=== PATIENT | female | born 1995 | race African-American/Black ===

== ENCOUNTER 2019-12-14 10:22 | Emergency (ER) | payer SELFPAY ==
--- OUTSIDE RECORDS SUMMARY | 2019-12-14 10:25 | XMS REPORT | Continuity of Care Document ---
:1995 Author Organization [facility] t Address [address] [place] [address] Care Team Providers Name Role Phone Visit, Nurse Attending Clinician Unavailable Problems This patient has no known problems. Allergies, Adverse Reactions, Alerts This patient has no known allergies or adverse reactions. Medications This patient has no known medications. Procedures This patient has no known procedures. Encounters Start End Encounter Admission Attending Care Care Encounter Source Date/Time Date/Time Type Type Clinicians Facility Department ID 2019-11-05 2019-11-05 Nurse Visit, [facility] [id number] 15:28:40 15:46:48 Visit [facility] [employer] [id number] [facility] [id number] MATERNAL [id number] & CHILD 107 [facility] 2019-08-06 2019-08-06 Nurse Visit, [facility] [id number] 15:41:47 16:05:48 Visit [facility] [employer] [id number] [facility] [id number] MATERNAL [id number] & CHILD 107 [facility] 2019-02-20 2019-02-20 Nurse Visit, [facility] [id number] 13:24:29 13:48:57 Visit [facility] [employer] [id number] [facility] [id number] MATERNAL [id number] & CHILD 107 [facility] Results This patient has no known results.
--- OUTSIDE RECORDS SUMMARY | 2019-12-14 10:26 | XMS REPORT | Summary of Care ---
:1995 Author Organization [facility] Address [address] [place] [address] Care Team Providers Name Role Phone Tierra Burgos [facility] Primary Care Provider Reason for Visit Reason Comments NURSE VISIT Encounter Details Date Type Department Care Team Description 11/05/2019 Nurse Visit [facility] Otto Burgos, [facility] [address] [facility] [place], [place] [id number] Depo-Provera [place] Visit, [facility] Nurse contraceptive status [address] (Primary Dx) [place] [address] Allergies No Known Allergiesdocumented as of this encounter (statuses as of 11/05/2019) Medications Medication Sig Dispensed Refills Start Date End Date Status ferrous sulfate 325 mg Take 1 tablet by 60 tablet 2 04/21/2017 Active (65 mg iron) tablet mouth 2 (two) times daily. Hospital, Clinic, or Other Ordered Dose Route Frequency Start Date End Date Status Facility Administered Medication medroxyPROGESTERone 150 mg IM [id number] 05/22/2018 Active (DEPO-PROVERA) injection 150 mgIndications: Encounter for initial prescription of injectable contraceptive medroxyPROGESTERone 150 mg IM [id number] 06/22/2019 0 Active (DEPO-PROVERA) injection 150 mgIndications: Depot contraception documented as of this encounter (statuses as of 11/05/2019) Active Problems Patient Care Coordination Note IOL 04-19-17 @7pm Problem Noted Date Depot contraception 05/29/2019 Nexplanon removal 08/29/2017 Well woman exam 06/07/2017 Contraceptive management 06/07/2017 Laceration, obstetrical, second degree 04/22/2017 History of asthma 2015 documented as of this encounter (statuses as of 11/05/2019) Resolved Problems Problem Noted Date Resolved Date Routine follow-up 05/18/2017 06/07/2017 Vaginal bleeding 05/02/2017 05/18/2017 care and examination immediately after delivery 1 06/26/2016 05/18/2017 Thrombocytopenia 04/22/2017 05/18/2017 (spontaneous vaginal delivery) 04/21/201705/18 Single liveborn 04/21/2017 05/18/2017 39 weeks gestation of 04/19/2017 05/18/20 17 Positive GBS test 03/29/2017 05/18/2017 Contraceptive management 01/26/2017 05/18/2017 Overview: Declined tubal Anemia of mother in , antepartum 01/15/2017 05/18/2017 Supervision of high risk , antepartum 08/25/2016 05/18/2017 Flu vaccine need 08/25/2016 05/18/2017 Overview: Received today Well woman exam 2015 08/25/2016 Irregular menstrual cycle 2015 08/25/2016 BCP ( control pills) initiation 09/17/201503/2017 Dysmenorrhea 2015 08/25/2016 documented as of this encounter (statuses as of 11/05/2019) Immunizations Name Administration Dates Next Due HPV9 11/21/2017, 06/26/2017, 04/21/2017 Influenza Virus Vaccine Quad .5 mL IM 6+ 05/14/2019, 019 MO Influenza Virus Vaccine Quad IM 3+ YRS 04/22/2017, 7 Tdap 01/26/2017 documented as of this encounter Social History Tobacco Use Types Packs/Day Years Used Date Never Smoker Smokeless Tobacco: Never Used Alcohol Use Drinks/Week oz/Week Comments No 0 Standard drinks or equivalent 0.0 Sex Assigned at Date Recorded Not on file Job Start Date Occupation Industry Not on file Not on file Not on file Travel History Travel Start Travel End No recent travel history available. COVID-19 Exposure Response Date Recorded In the last month, have you been in contact with No / Unsure 11/05/2019 3:31 PM CDT someone who was confirmed or suspected to have Coronavirus / COVID-19? documented as of this encounter Last Filed Vital Signs Vital Sign Reading Time Taken Comments Blood Pressure 139/79 11/05/2019 3:32 PM CDT Pulse 87 11/05/2019 3:32 PM CDT Temperature 37 C (98.6 F) 11/05/2019 3:32 PM CDT Respiratory Rate 16 11/05/2019 3:32 PM CDT Oxygen Saturation - - Inhaled Oxygen Concentration - - Weight 79.5 kg (175 lb 3 oz) 11/05/2019 3:32 PM CDT Height 170.2 cm (5' 7") 11/05/2019 3:32 PM CDT Body Mass Index 27.44 11/05/2019 3:32 PM CDT documented in this encounter Patient Instructions Patient InstructionsJessica Magana RN - 11/05/2019 3:30 PM CDT Patient Education Medroxyprogesterone injection [Contraceptive] Brand Names: Depo-Provera, Depo-subQ Provera 104 What is this medicine? MEDROXYPROGESTERONE (me DROX ee proe MORENO te adalberto) contraceptive injections prevent . They provide effective control for 3 months. Depo-subQ Provera 104 is also used for treating pain related to endometriosis. How should I use this medicine? Depo-Provera Contraceptive injection is given into a muscle. Depo-subQ Provera 104 injection is given under the skin. These injections are given by a health career development consultant. You must not be before getting an injection. The injection is usually given during the first 5 days after the start of a menstrual period or 6 weeks after delivery of a baby. Talk to your germ drier regarding the use of this medicine in children. Special care may be needed. These injections have been used in female children who have started having menstrual periods. What side effects may I notice from receiving this medicine? Side effects that you should report to your doctor or health career development consultant as soon as possible: allergic reactions like skin rash, itching or hives, swelling of the face, lips, or tongue breast tenderness or discharge breathing problems changes in vision depression feeling faint or lightheaded, falls fever pain in the abdomen, chest, groin, or leg problems with balance, talking, walking unusually weak or tired yellowing of the eyes or skin Side effects that usually do not require medical attention (report to your doctor or health career development consultant if they continue or are bothersome): acne fluid retention and swelling headache irregular periods, spotting, or absent periods temporary pain, itching, or skin reaction at site where injected weight gain What may interact with this medicine? Do not take this medicine with any of the following medications: bosentan This medicine may also interact with the following medications: aminoglutethimide antibiotics or medicines for infections, especially rifampin, rifabutin, rifapentine, and griseofulvin aprepitant barbiturate medicines such as phenobarbital or primidone bexarotene carbamazepine medicines for seizures like ethotoin, felbamate, oxcarbazepine, phenytoin, topiramate modafinil Anshu's wort What if I miss a dose? Try not to miss a dose. You must get an injection once every 3 months to maintain control. If you cannot keep an appointment, call and reschedule it. If you wait longer than 13 weeks between Depo-Provera contraceptive injections or longer than 14 weeks between Depo-subQ Provera 104 injections, you could get . Use another method for control if you miss your appointment. You may also need a test before receiving another injection. Where should I keep my medicine? This does not apply. The injection will be given to you by a health career development consultant. What should I tell my health care provider before I take this medicine? They need to know if you have any of these conditions: frequently drink alcohol asthma blood vessel disease or a history of a blood clot in the lungs or legs bone disease such as osteoporosis breast cancer diabetes eating disorder (anorexia nervosa or bulimia) high blood pressure HIV infection or AIDS kidney disease liver disease mental depression migraine seizures (convulsions) stroke tobacco smoker vaginal bleeding an unusual or allergic reaction to medroxyprogesterone, other hormones, medicines, foods, dyes, or preservatives or trying to get breast-feeding What should I watch for while using this medicine? This drug does not protect you against HIV infection (AIDS) or other sexually transmitted diseases. Use of this product may cause you to lose calcium from your bones. Loss of calcium may cause weak bones (osteoporosis). Only use this product for more than 2 years if other forms of control are not right for you. The longer you use this product for control the more likely you will be at risk for weak bones. Ask your health career development consultant how you can keep strong bones. You may have a change in bleeding pattern or irregular periods. Many females stop having periods while taking this drug. If you have received your injections on time, your chance of being is very low. If you think you may be , see your health career development consultant as soon as possible. Tell your health career development consultant if you want to get within the next year. The effect of this medicine may last a long time after you get your last injection. NOTE:This sheet is a summary. It may not cover all possible information. If you have questions aboutthis medicine, talk to your doctor, pharmacist, or health care provider. Copyright 2018 [employer] documented in this encounter Progress Notes Jessica Magana RN - 11/05/2019 3:30 PM CDT24 year old female has been identified by and name. Verbal consent has been obtained by patientto have an injection of Depo Provera, as ordered by the provider. Date of last Depo Provera injection: 08/06/2019 Last WWE: 05/29/2019 Encounter Diagnosis: v25.49 The site was cleaned with an alcohol swab and given intramuscularly (IM) in the right gluteus. A band aid dressing was then applied to the injection site. The patient tolerated the procedure well , no rash, swelling or reaction noted. Advised patient on Calcium intake 500-1200 mg daily. ED warnings given. Patient to return to clinic in 12 weeks for next Depo. Patient verbalized understanding. JESSICA MAGANA RN 11/05/2019 3:49 PM documented in this encounter Plan of Treatment Date Type Specialty Care Team Description 01/28/2020 [facility] Maintenance Due Date Last Done Comments CHLAMYDIA SCREENING 05/29/2020 05/29/2019, 05/29/2019, 05/28/2018, Additional history exists MENINGOCOCCAL B VACCINES (1 05/29/2020 Post poned from of 2 - Risk Bexsero 2-dose 09/17 (Insurance / series) Financial) PAP SMEAR 05/28/2021 05/28/2018 DTaP,Tdap,and Td Vaccines 01/26/2027 01/26/2017 (2 - Td) HPV VACCINES Completed 11/21/2017, 06/26/2017, 04/21/2017 INFLUENZA VACCINE Completed 05/14/2019, 08/21/2018, 04/22/2017, Additional history exists PNEUMOCOCCAL 0-64 YEARS Aged Out No longe r eligible COMBINED SERIES based on patient 's age to complete this topic documented as of this encounter Results Not on filedocumented in this encounter Visit Diagnoses Diagnosis Depo-Provera contraceptive status - Prim franky Surveillance of other previously prescri bed contraceptive method documented in this encounter Administered Medications Medication Order MAR Action Action Date Dose Rate Site medroxyPROGESTERone Given 11/05/2019 3:51 150 mg Right Upper Quad. (DEPO-PROVERA) injection 150 PM CDT Gluteus mg 150 mg, Intramuscular, [id number], First dose on Sun05/22/18 at 1715, Until Discontinued, Routine Given 08/06/2019 4:17 PM REAL ESTATE ADMINISTRATOR 150 mg Left Upper Quad. Gluteus Given 05/14/2019 4:00 PM REAL ESTATE ADMINISTRATOR 150 mg Left Upper Quad. Gluteus documented in this encounter Insurance Payer Benefit Plan Subscriber ID Effective Phone Address Typ e / Group Dates [facility] xxxxxxxxx 2018-Prese [phone] Medicaid [place]OM[place] [id number] [place] [address] documented as of this encounter Advance Directives Name Relationship Healthcare Agent Relationship Co mmunication Meghan Wisdom Other Primary healthcare agent
[2019-12-14 11:39] LABS: Absolute Lymphocytes (CBC) 1.6 K/uL (0.7-4.9); Lymphocytes % 40.8 % (15.3-44.8); MPV 8.8 fL (7.6-11.3); Protime INR 1.13; RBC Red Blood Cell Count 5.02 M/uL (3.86-4.86)
--- NOTE | 2019-12-14 11:50 | RAD REPORT ---
EXAM DESCRIPTION: Vashti Single View12/14/2019 11:33 am CLINICAL HISTORY: Chest pain COMPARISON: none FINDINGS: The lungs appear clear of acute infiltrate. The heart is normal size IMPRESSION: No acute abnormalities displayed
[2019-12-14 11:54] LABS: ALT/SGPT 17 U/L (12-78); AST/SGOT 14 U/L (15-37); Albumin 4.1 g/dL (3.4-5.0); Alkaline Phosphatase 102 U/L (45-117); BUN Blood Urea Nitrogen 6 mg/dL (7-18); Bicarbonate 25 mmol/L (21-32); Bilirubin Direct 0.2 mg/dL (0-0.2); Bilirubin Total 0.7 mg/dL (0.2-1.0); Glucose Level 68 mg/dL (74-106); Magnesium 2.3 mg/dL (1.8-2.4); NT PRO-BNP 10 pg/mL (<125); Potassium 3.5 mmol/L (3.5-5.1); Protein, Total 8.6 g/dL (6.4-8.2); Sodium Level 140 mmol/L (136-145); Troponin (Emerg Dept Use Only) < 0.02 ng/mL (0.0-0.045)
--- NOTE | 2019-12-14 12:15 | EDPHYS ---
Physician Documentation [facility] Name: Tereza Kendrick Age: 24 yrs Sex: Female : 1995 Arrival Date: 12/14/2019 Time: 10:26 Bed 8 Private MD: ED Physician Alex Cedeño HPI: 12/13 11:15 This 24 yrs old Black Female presents to ER via Wheelchair with complaints of Chest pm1 Pain. 11:15 The patient or guardian reports chest pain that is located primarily in the mid-sternal pm1 area. The pain does not radiate. Associated signs and symptoms: The patient has no apparent associated signs or symptoms, Pertinent negatives: abdominal pain, cough, nausea, palpitations, shortness of breath, vomiting. The chest pain is described as sharp. Duration: The patient or guardian reports a single episode, that is still ongoing. Modifying factors: The symptoms are alleviated by nothing. the symptoms are aggravated by deep breath, palpation of area. Severity of pain: in the emergency department the pain is unchanged. [place] [facility] for the same complaint. Seen by Dr. Watt and discharged home with dx of chest wall pain. MDM DEVELOPER: 10:50 LMP 12/12/2019 rb1 Historical: - Allergies: 10:44 No Known Allergies; iw - Home Meds: 10:44 None [Active]; iw - PMHx: 10:44 Asthma; iw - PSHx: 10:44 None; iw - Immunization history:: Adult Immunizations. - Social history:: Smoking status: Patient/guardian denies using tobacco, the patient reports quitting approximately 2 years ago. ROS: 11:15 Constitutional: Negative for fever, chills, and weight loss, Eyes: Negative for injury, pm1 pain, redness, and discharge, ENT: Negative for injury, pain, and discharge, Neck: Negative for injury, pain, and swelling. 11:15 Respiratory: Negative for shortness of breath, cough, wheezing, and pleuritic chest pain, Abdomen/GI: Negative for abdominal pain, nausea, vomiting, diarrhea, and constipation, Back: Negative for injury and pain, : Negative for injury, bleeding, discharge, and swelling, MS/Extremity: Negative for injury and deformity, Skin: Negative for injury, rash, and discoloration, Neuro: Negative for headache, weakness, numbness, tingling, and seizure. 11:15 Cardiovascular: Positive for chest pain, Negative for edema, palpitations. Exam: 11:15 Constitutional: This is a well developed, well nourished patient who is awake, alert, pm1 and in no acute distress. Head/Face: Normocephalic, atraumatic. 11:15 Cardiovascular: Regular rate and rhythm with a normal S1 and S2. No gallops, murmurs, or rubs. Normal PMI, no JVD. No pulse deficits. Respiratory: Lungs have equal breath sounds bilaterally, clear to auscultation and percussion. No rales, rhonchi or wheezes noted. No increased work of breathing, no retractions or nasal flaring. Abdomen/GI: Soft, non-tender, with normal bowel sounds. No distension or tympany. No guarding or rebound. No evidence of tenderness throughout. Back: No spinal tenderness. No costovertebral tenderness. Full range of motion. Skin: Warm, dry with normal turgor. Normal color with no rashes, no lesions, and no evidence of cellulitis. MS/ Extremity: Pulses equal, no cyanosis. Neurovascular intact. Full, normal range of motion. 11:15 Chest/axilla: Inspection: normal, Palpation: tenderness, of the mid-sternal area, that totally reproduces the patient's complaints. 11:15 Neuro: Exam negative for acute changes, Orientation: is normal, Motor: is normal, moves all fours. Vital Signs: 10:40 BP 140 / 89; Pulse 96; Resp 18 S; Temp 98.7; Pulse Ox 100% on R/A; Weight 81.65 kg; iw Height 5 ft. 10 in. (177.80 cm); Pain 10/10; 11:45 BP 125 / 81; Pulse 86; Resp 19; Pulse Ox 100% on R/A; rb1 12:42 BP 102 / 91; Pulse 82; Resp 21; Pulse Ox 100% ; rb1 10:40 Body Mass Index 25.83 (81.65 kg, 177.80 cm) iw MDM: 11:04 Patient medically screened. pm1 12:10 Data reviewed: vital signs. Data interpreted: Pulse oximetry: on room air is 100 %. pm1 Interpretation: normal. Counseling: I had a detailed discussion with the patient and/or guardian regarding: the historical points, exam findings, and any diagnostic results supporting the discharge/admit diagnosis, lab results, radiology results, the need for outpatient follow up, to return to the emergency department if symptoms worsen or persist or if there are any questions or concerns that arise at home. 12:10 Data reviewed: old medical records, Work up from [facility] reviewed, which included pm1 labs and CT chest. Patient's chest pain work up today is WNLs and patient instructed to follow up with PCP. 12/13 11:06 Order name: Basic Metabolic Panel; Complete Time: 12:09 pm12/13 11:06 Order name: CBC with Diff; Complete Time: 11:40 pm12/13 11:06 Order name: LFT's; Complete Time: 12: pm12/13 11:06 Order name: Magnesium; Complete Time: 12: pm12/13 11:06 Order name: NT PRO-BNP; Complete Time: 12:09 pm12/13 11:06 Order name: PT-INR; Complete Time: 11:40 pm12/13 11:06 Order name: Troponin (emerg Dept Use Only); Complete Time: 12: pm12/13 11:06 Order name: XRAY Chest (1 view); Complete Time: 12: pm12/13 11:06 Order name: EKG; Complete Time: 11:07 pm12/13 11:06 Order name: Cardiac monitoring; Complete Time: 11:25 pm12/13 11:06 Order name: EKG - Nurse/Tech; Complete Time: 11:25 pm12/13 11:06 Order name: IV Saline Lock; Complete Time: 11: pm12/13 11:06 Order name: Labs collected and sent; Complete Time: 11: pm12/13 11:06 Order name: O2 Per Protocol; Complete Time: 11: pm12/13 11:06 Order name: O2 Sat Monitoring; Complete Time: 11: pm Administered Medications: 12:40 Drug: TORadol - Ketorolac 15 mg Route: IVP; Site: right antecubital; rb1 12:54 Follow up: Response: No adverse reaction rb1 12:40 Drug: Flexeril 10 mg Route: PO; rb1 12:53 Follow up: Response: No adverse reaction rb1 Disposition: 15:24 Co-signature as Attending Physician, Alex Cedeño MD. rn Disposition: 12/14/19 12:15 Discharged to Home. Impression: Chest pain, unspecified. - Condition is Stable. - Discharge Instructions: Nonspecific Chest Pain. - Prescriptions for Cyclobenzaprine 10 mg Oral Tablet - take 1 tablet by ORAL route every 8 hours As needed; 30 tablet. Diclofenac Sodium 75 mg Oral Tablet Sustained Release - take 1 tablet by ORAL route 2 times per day; 30 tablet. - Medication Reconciliation Form, Thank You Letter, Antibiotic Education, Prescription Opioid Use form. - Follow up: Emergency Department; When: As needed; Reason: Worsening of condition. Follow up: Private Physician; When: 2 - 3 days; Reason: Recheck today's complaints, Continuance of care, Re-evaluation by your physician. - Problem is new. - Symptoms have improved. Signatures: Dispatcher [employer] EDMS Mary Jo Acosta RN RN iw Nieto, Roman, MD MD rn Barber, Rebecca, RN RN rb1 Dominik Pollock, ASSOCIATE PROGRAMMER ANALYST ASSOCIATE PROGRAMMER ANALYST pm1 Corrections: (The following items were deleted from the chart) 12:57 12:15 12/14/2019 12:15 Discharged to Home. Impression: Chest pain, unspecified. rb1 Condition is Stable. Forms are Medication Reconciliation Form, Thank You Letter, Antibiotic Education, Prescription Opioid Use. Follow up: Emergency Department; When: As needed; Reason: Worsening of condition. Follow up: Private Physician; When: 2 - 3 days; Reason: Recheck today's complaints, Continuance of care, Re-evaluation by your physician. Problem is new. Symptoms have improved. pm1
--- NOTE | 2019-12-14 12:15 | ER ---
Nurse's Notes [facility] Name: Tereza Kendrick Age: 24 yrs Sex: Female : 1995 Arrival Date: 12/14/2019 Time: : Bed 8 Private MD: Diagnosis: Chest pain, unspecified Presentation: 12/13 10:40 Chief complaint: Patient states: chest pains sinc the , was seen at [place] [facility], had iw CT and was fine, went back yesterday and was told she had an infection in her sternum but the pain medicine isn't helping, was diagnosed with costochondritis, has previous hx of two minor heart attacks, pain has been constant 03/27 , and is also SOB, can't sleep on back or stomach bc of pain, pain described as burning pain. Coronavirus screen: Proceed with normal triage. Patient denies a cough. Patient reports shortness of breath or difficulty breathing. Patient denies measured and/or subjective temperature greater than 100.4F prior to today's visit. Patient denies travel on a cruise ship or to a country the [facility] currently lists as an affected area. Patient denies contact with known and/or suspected case of COVID-19. Ebola Screen: Patient negative for fever greater than or equal to 101.5 degrees Fahrenheit, and additional compatible Ebola Virus Disease symptoms Patient denies exposure to infectious person. Patient denies travel to an Ebola-affected area in the 21 days before illness onset. No symptoms or risks identified at this time. Initial Sepsis Screen: Does the patient meet any 2 criteria? No. Patient's initial sepsis screen is negative. Does the patient have a suspected source of infection? No. Patient's initial sepsis screen is negative. Risk Assessment: Do you want to hurt yourself or someone else? Patient reports no desire to harm self or others. Onset of symptoms was December 04, 2019. 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 - Social history:: Smoking status: Patient/guardian denies using tobacco, the patient reports quitting approximately 2 years ago. Screenin:50 Abuse screen: Denies threats or abuse. Nutritional screening: No deficits noted. rb1 Tuberculosis screening: No symptoms or risk factors identified. Fall Risk None identified. Assessment: 10:50 General: Appears in no apparent distress. comfortable, Behavior is calm, cooperative. rb1 Pain: Complains of pain in chest Pain currently is 10 out of 10 on a pain scale. Pain began Since December 03 per pt report. Neuro: Level of Consciousness is awake, alert, obeys commands, Oriented to person, place, time, situation. Cardiovascular: Capillary refill < 3 seconds. Respiratory: Reports shortness of breath at rest Airway is patent Respiratory effort is even, unlabored, Respiratory pattern is regular, symmetrical. GI: No signs and/or symptoms were reported involving the gastrointestinal system. : No signs and/or symptoms were reported regarding the genitourinary system. Derm: Skin is dry, Skin is normal, Skin temperature is warm. 10:50 Pain: Pain radiates to back Pt. reports that she cannot lay on her back because the rb1 pain travels to her back when she does. 11:45 Reassessment: Patient appears in no apparent distress at this time. Patient and/or rb1 family updated on plan of care and expected duration. Pain level reassessed. Patient is alert, oriented x 3, equal unlabored respirations, skin warm/dry/pink. 12:41 Reassessment: Discharge pending due medication administration. rb1 Vital Signs: 10:40 BP 140 / 89; Pulse 96; Resp 18 S; Temp 98.7; Pulse Ox 100% on R/A; Weight 81.65 kg; iw Height 5 ft. 10 in. (177.80 cm); Pain 10/10; 11:45 BP 125 / 81; Pulse 86; Resp 19; Pulse Ox 100% on R/A; rb1 12:42 BP 102 / 91; Pulse 82; Resp 21; Pulse Ox 100% ; rb1 10:40 Body Mass Index 25.83 (81.65 kg, 177.80 cm) iw ED Course: 10:26 Patient arrived in ED. ag5 10:44 Triage completed. iw 10:46 Adela Decker, RN is Primary Nurse. rb1 10:46 Dominik Pollock NP is PHCP. pm1 10:46 Alex Cedeño MD is Attending Physician. pm1 10:50 Patient has correct armband on for positive identification. Placed in gown. Bed in low rb1 position. Call light in reach. Side rails up X 1. senior laboratory technician on. Pulse ox on. NIBP on. Warm blanket given. 10:50 Arm band placed on right wrist. rb1 10:50 Patient maintains SpO2 saturation greater than 95% on room air. rb1 11:10 Inserted saline lock: 22 gauge in right antecubital area, using aseptic technique. rb1 Blood collected. 11:25 EKG done, by ED staff, reviewed by Alex Cedeño MD. 5 11:33 XRAY Chest (1 view) In Process Unspecified. EDMS 12:54 No provider procedures requiring assistance completed. IV discontinued, intact, rb1 bleeding controlled, No redness/swelling at site. Pressure dressing applied. Administered Medications: 12:40 Drug: TORadol - Ketorolac 15 mg Route: IVP; Site: right antecubital; rb1 12:54 Follow up: Response: No adverse reaction rb1 12:40 Drug: Flexeril 10 mg Route: PO; rb1 12:53 Follow up: Response: No adverse reaction rb1 Outcome: 12:15 Discharge ordered by MD. pm1 12:54 Discharged to home ambulatory. rb1 12:54 Condition: stable 12:54 Discharge instructions given to patient, Instructed on discharge instructions, follow up and referral plans. medication usage, Demonstrated understanding of instructions, follow-up care, medications, Prescriptions given X 1. 12:57 Patient left the ED. rb1 Signatures: Dispatcher [employer] EDMS Mary Jo cAosta RN RN iw Barber, Rebecca, RN RN rb1 Dominik Pollock NP PERPETUAL INVENTORY CLERK pm1 Yari Patel 5 Franci Upton 5
[2019-12-14] MEDS ORDERED: KETOROLAC 30 MG/ML INJ ONE (12:44)
[2019-12-14] MEDS ORDERED: CYCLOBENZAPRINE 10 MG TAB ONE (12:44)
[2019-12-14 13:04] VITALS: TEMP 98.7; O2SAT 100
[2019-12-14 13:07] VITALS: BP 102/91
== END 2019-12-14 12:57 | disposition home or self-care (01) ==
LOC: ER 10:22
DX: R07.9 Chest pain, unspecified (principal)
CPT/HCPCS: 36415; 71045; 80048; 80076; 83735; 83880; 84484; 85025; 85610; 93005; 96374; 99285

== ENCOUNTER 2020-03-14 20:29 | Emergency (ER) | payer SELFPAY ==
--- OUTSIDE RECORDS SUMMARY | 2020-03-14 20:32 | XMS REPORT | Continuity of Care Document ---
:1995 Author Organization [facility] t Address [address] [place] [address] Care Team Providers Name Role Phone Lab, Fam Pob I Attending Clinician Unavailable Visit, Nurse Attending Clinician Unavailable Problems This patient has no known problems. Allergies, Adverse Reactions, Alerts This patient has no known allergies or adverse reactions. Medications This patient has no known medications. Procedures This patient has no known procedures. Encounters Start End Encounter Admission Attending Care Care Encounter Source Date/Time Date/Time Type Type Clinicians Facility Department ID 2020-01-09 2020-01-09 Laboratory Lab, [facility] [id number] 17:00:00 17:20:00 Only Fam Pob I Health [id number] [place] [id number] Professio [id number] nal [address] 2019-11-05 2019-11-05 Nurse Visit, [facility] [id number] 15:28:40 15:46:48 Visit [facility] PERIODONTAL ASSISTANT [id number] [facility] [id number] MATERNAL [id number] & CHILD 107 [facility] 2019-08-06 2019-08-06 Nurse Visit, [facility] [id number] 15:41:47 16:05:48 Visit [facility] PERIODONTAL ASSISTANT [id number] [facility] [id number] MATERNAL [phone] & CHILD 107 [facility] 2019-02-20 2019-02-20 Nurse Visit, [facility] [id number] 13:24:29 13:48:57 Visit [facility]era PERIODONTAL ASSISTANT [id number] [facility] [id number] MATERNAL [phone] & CHILD [address] [place] [address] Results This patient has no known results.
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
[2020-03-14] MEDS ORDERED: DIAZEPAM 5 MG TABLET ONE (22:39)
[2020-03-14 23:19] LABS: Urine Culture Reflex Order NOT NEEDED; Urine Mucus 1+ /HPF (NONE SEEN)
[2020-03-14 23:20] LABS: Urine Bacteria <20 /HPF (<20); Urine RBC <5 /HPF (NONE SEEN)
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
[2020-03-14 23:44] VITALS: TEMP 99.2
[2020-03-14 23:46] VITALS: BP 117/79; O2SAT 97
[2020-03-15 00:08] LABS: Urine Blood NEGATIVE (NEG); Urine Glucose NEGATIVE (NEG); Urine Protein TRACE (NEG); Urine Specific Gravity 1.025 (1.005-1.030)
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
== END 2020-03-14 23:38 | disposition home or self-care (01) ==
LOC: ER 20:29
DX: M54.9 Dorsalgia, unspecified (principal); V59.49XA Driver of pick-up truck or van injured in collision with other motor vehicles in traffic accident, initial encounter
CPT/HCPCS: 71046; 81003; 81015; 81025; 87086; 87088; 99283

== ENCOUNTER 2020-07-27 16:12 | Emergency (ER) | payer SELFPAY ==
[2020-07-27 18:55] LABS: Urine Blood TRACE (NEG); Urine Glucose 1+ (NEG); Urine Protein NEGATIVE (NEG); Urine Specific Gravity >1.030 (1.005-1.030); Urine pH 5.5 (5.0-7.0)
--- NOTE | 2020-07-27 21:12 | EDPHYS ---
Physician Documentation [facility] Name: Tereza Kendrick Age: 24 yrs Sex: Female : 1995 Arrival Date: 07/27/2020 Time: 16:12 Bed 2 Private MD: ED Physician Darin Pearl HPI: 07/27 21:09 This 24 yrs old Black Female presents to ER via Ambulatory with complaints of STD ma2 Exposure - recheck symptoms. 21:09 Severity of symptoms: At their worst the symptoms were very mild in the emergency ma2 department the symptoms have resolved. The patient has not experienced similar symptoms in the past. she has no symptoms, or exposure to stds.. she had positive routine test in the past and now want to be retested.. . Historical: - Allergies: 16:57 No Known Allergies; ll1 - PMHx: 16:57 "heart attacks"; "Infection in my sternum"; Asthma; ll1 - PSHx: 16:57 None; ll1 - Immunization history:: Flu vaccine is not up to date. - Social history:: Smoking status: Patient denies any tobacco usage or history of. Patient/guardian denies using alcohol, street drugs, The patient lives with family. - Family history:: not pertinent. ROS: 21:09 Constitutional: Negative for fever, chills, and weight loss. ma2 21:09 All other systems are negative. Exam: 21:09 Constitutional: This is a well developed, well nourished patient who is awake, alert, ma2 and in no acute distress. Chest/axilla: Normal chest wall appearance and motion. Nontender with no deformity. No lesions are appreciated. Cardiovascular: Regular rate and rhythm with a normal S1 and S2. No gallops, murmurs, or rubs. Normal PMI, no JVD. No pulse deficits. Respiratory: Lungs have equal breath sounds bilaterally, clear to auscultation and percussion. No rales, rhonchi or wheezes noted. No increased work of breathing, no retractions or nasal flaring. Abdomen/GI: Soft, non-tender, with normal bowel sounds. No distension or tympany. No guarding or rebound. No evidence of tenderness throughout. Vital Signs: 16:54 BP 142 / 69; Pulse 93; Resp 17; Temp 98.1; Pulse Ox 100% ; Weight 83.01 kg; Height 5 ll1 ft. 9 in. (175.26 cm); Pain 0/10; 21:02 BP 130 / 60; Pulse 90; Resp 18; Pulse Ox 99% ; ea 16:54 Body Mass Index 27.02 (83.01 kg, 175.26 cm) ll1 MDM: 20:43 Patient medically screened. ma2 21:09 Differential Diagnosis std, uti uritcaria, . Data reviewed: vital signs, nurses notes. ma2 Counseling: I had a detailed discussion with the patient and/or guardian regarding: the historical points, exam findings, and any diagnostic results supporting the discharge/admit diagnosis, the presence of at least one elevated blood pressure reading (>120/80) during this emergency department visit, the need for outpatient follow up. Response to treatment: the patient's symptoms have markedly improved after treatment. ED course: has leuko estrase + on ua,, but no symptoms of uti, so will not treat with antibiotics, . 07/27 18:36 Order name: Urine Dipstick--Ancillary (enter results) 07/27 18:36 Order name: Urine --Ancillary (enter results) 07/27 18:37 Order name: Urine Dipstick-Ancillary EDMS Administered Medications: No medications were administered Disposition: 07/27/20 21:12 Discharged to Home. Impression: Encounter for screening for infections with a predominantly sexual mode of transmission. - Condition is Stable. - Discharge Instructions: Health Maintenance, Female. - Medication Reconciliation Form, Thank You Letter, Antibiotic Education, Prescription Opioid Use form. - Follow up: Private Physician; When: Tomorrow; Reason: Continuance of care. Signatures: Dispatcher [employer] EDMS Brittney Addison RN RN ea Alzahri, Mohammad, MD MD ma2 Brianne Lopez RN RN ll1 Corrections: (The following items were deleted from the chart) 21:17 21:12 07/27/2020 21:12 Discharged to Home. Impression: Encounter for screening for ea infections with a predominantly sexual mode of transmission. Condition is Stable. Forms are Medication Reconciliation Form, Thank You Letter, Antibiotic Education, Prescription Opioid Use. Follow up: Private Physician; When: Tomorrow; Reason: Continuance of care. ma2
--- NOTE | 2020-07-27 21:12 | ER ---
Nurse's Notes [facility] Name: Tereza Kendrick Age: 24 yrs Sex: Female : 1995 Arrival Date: 07/27/2020 Time: 16:12 Bed 2 Private MD: Diagnosis: Encounter for screening for infections with a predominantly sexual mode of transmission Presentation: 07/27 16:54 Chief complaint: Patient states: Went to doctor last week. Was called yesterday and ll1 told she has chlamydia. Finished antibiotic, just came to get rechecked. Coronavirus screen: Client denies travel out of the [place] in the last 14 days. At this time, the client does not indicate any symptoms associated with coronavirus-19. Ebola Screen: Patient denies travel to an Ebola-affected area in the 21 days before illness onset. Initial Sepsis Screen: Does the patient meet any 2 criteria? HR > 90 bpm. No. Patient's initial sepsis screen is negative. Does the patient have a suspected source of infection? Yes: Other: r/o chlamydia. Risk Assessment: Do you want to hurt yourself or someone else? Patient reports no desire to harm self or others. Onset of symptoms was July 23, 2020. 16:54 Method Of Arrival: Ambulatory ll1 16:54 Acuity: SOURAV 4 ll1 Historical: - Allergies: 16:57 No Known Allergies; ll1 - PMHx: 16:57 "heart attacks"; "Infection in my sternum"; Asthma; ll1 - PSHx: 16:57 None; ll1 - Immunization history:: Flu vaccine is not up to date. - Social history:: Smoking status: Patient denies any tobacco usage or history of. Patient/guardian denies using alcohol, street drugs, The patient lives with family. - Family history:: not pertinent. Screenin:01 Abuse screen: Denies threats or abuse. Nutritional screening: No deficits noted. ea Tuberculosis screening: No symptoms or risk factors identified. Fall Risk None identified. Assessment: 21:01 General: Appears in no apparent distress. Behavior is calm, cooperative, appropriate ea for age. Pain: Denies pain. Neuro: Level of Consciousness is awake, alert, obeys commands. Cardiovascular: Patient's skin is warm and dry. Respiratory: Airway is patent Respiratory effort is even, unlabored, Respiratory pattern is regular, symmetrical. Derm: Skin is pink, warm \\T\\ dry. 21:16 Reassessment: Patient and/or family updated on plan of care and expected duration. Pain ea level reassessed. Patient is alert, oriented x 3, equal unlabored respirations, skin warm/dry/pink. Discharge instruction given to patient verbalized the understanding of instruction. Pt left ED ambulatory tolerating well. Vital Signs: 16:54 BP 142 / 69; Pulse 93; Resp 17; Temp 98.1; Pulse Ox 100% ; Weight 83.01 kg; Height 5 ll1 ft. 9 in. (175.26 cm); Pain 0/10; 21:02 BP 130 / 60; Pulse 90; Resp 18; Pulse Ox 99% ; ea 16:54 Body Mass Index 27.02 (83.01 kg, 175.26 cm) ll1 ED Course: 16:12 Patient arrived in ED. as 16:57 Triage completed. ll1 16:57 Arm band placed on. 1 20:43 Darin Pearl MD is Attending Physician. [email or web address] 20:53 Brittney Addison, RN is Primary Nurse. ea 21:01 Patient has correct armband on for positive identification. Bed in low position. Call ea light in reach. Side rails up X 1. 21:17 No provider procedures requiring assistance completed. Patient did not have IV access ea during this emergency room visit. Administered Medications: No medications were administered Outcome: 21:12 Discharge ordered by . ma2 21:16 Discharged to home ambulatory, with friend. ea 21:16 Condition: stable 21:16 Discharge instructions given to patient, Instructed on discharge instructions, follow up and referral plans. medication usage, Demonstrated understanding of instructions, follow-up care, medications. 21:17 Patient left the ED. ea Signatures: Kayla Patel Elena, RN RN Darin Shepherd MD MD de2 Brianne Lopez RN RN [facility]
[2020-07-27 21:22] VITALS: TEMP 98.1
[2020-07-27 21:24] VITALS: BP 130/60; O2SAT 99
--- OUTSIDE RECORDS SUMMARY | 2020-07-28 12:12 | XMS REPORT | Summary of Care ---
:1995 Author Organization [facility] - Health Address [address] [place] [address] Care Team Providers Name Role Phone Tierra Burgos Primary Care Provider Encounter Details Date Type Department Care Team Description 07/22/2020 Orders Only [facility] Doctor Unassigned, No [address] [facility] [place] [address] [address] [place] [address] Allergies No Known Allergiesdocumented as of this encounter (statuses as of 07/22/2020) Medications Medication Sig Dispensed Refills Start Date End Date Status ferrous sulfate 325 mg Take 1 tablet by 60 tablet 2 04/21/2017 Active (65 mg iron) tablet mouth 2 (two) times daily. Hospital, Clinic, or Other Ordered Dose Route Frequency Start Date End Date Status Facility Administered Medication medroxyPROGESTERone 150 mg IM [id number] 05/22/2018 Active (DEPO-PROVERA) injection 150 mgIndications: Encounter for initial prescription of injectable contraceptive documented as of this encounter (statuses as of 07/22/2020) Active Problems Patient Care Coordination Note IOL 17 @7pm Problem Noted Date Depot contraception 05/29/2019 Nexplanon removal 08/29/2017 Well woman exam 06/07/2017 Contraceptive management 06/07/2017 Laceration, obstetrical, second degree 04/22/2017 History of asthma 2015 documented as of this encounter (statuses as of 07/22/2020) Resolved Problems Problem Noted Date Resolved Date Routine follow-up 05/18/2017 06/07/2017 Vaginal bleeding 05/02/2017 05/18/2017 care and examination immediately after delivery 1 06/26/2016 05/18/2017 Thrombocytopenia 04/22/2017 05/18/2017 (spontaneous vaginal delivery) 04/21/201705/18 Single liveborn infant 04/21/2017 05/18/2017 39 weeks gestation of 04/19/2017 [...] as of this encounter (statuses as of 07/22/2020) Immunizations Name Administration Dates Next Due HPV9 [...] Assigned at Date Recorded Not on file documented as of this encounter Last Filed Vital Signs Not on filedocumented in this encounter Plan of Treatment Date Type Specialty Care Team Description 07/22/2020 [facility] Visit [facility] [address] [id number] 15 [phone] Health Maintenance Due Date Last Done Comments MENINGOCOCCAL B VACCINES (1 2006 of 2 - Risk Bexsero 2-dose series) INFLUENZA VACCINE (#1) 2020 05/14/2019, 08/21/2018, 04/22/2017, Additional history exists CHLAMYDIA SCREENING 05/29/2020 05/29/2019, 05/29/2019, 05/28/2018, Additional history exists Depression Screening 11/04/2020 11/05/2019 PAP SMEAR 05/28/2021 05/28/2018 DTaP,Tdap,and Td Vaccines (2 01/26/2027 01/26/2017 - Td) HPV VACCINES Completed 11/21/2017, 06/26/2017, 04/21/2017 PNEUMOCOCCAL 0-64 YEARS Aged Out No longe r eligible COMBINED SERIES based on patient 's age to complete this topic documented as of this encounter Procedures Procedure Name Priority Date/Time Associated Diagnosis Comme nts ASSIGNMENT OF BENEFITS Routine 07/22/2020 9:12 AM 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
--- OUTSIDE RECORDS SUMMARY | 2020-07-28 12:12 | XMS REPORT | Continuity of Care Document ---
:1995 Author Organization [facility] t Address [address] [place] [address] Care Team Providers Name Role Phone Tierra Lamb Attending Clinician Problems This patient has no known problems. Allergies, Adverse Reactions, Alerts This patient has no known allergies or adverse reactions. Medications This patient has no known medications. Procedures This patient has no known procedures. Encounters Start End Encounter Admission Attending Care Care Encounter Source Date/Time Date/Time Type Type Clinicians Facility Department ID 2020-07-22 2020-07-22 Office YOLIE Burgos [id number] 09:24:39 10:35:36 Visit Emma Mayorga [facility] [id number] [facility] [id number] MATERNAL [id number] & CHILD [address] [place] [address] Results This patient has no known results.
--- OUTSIDE RECORDS SUMMARY | 2020-07-28 12:13 | XMS REPORT | Summary of Care ---
:1995 Author Organization [facility] Address [address] [place] [address] Care Team Providers Name Role Phone Tierra Burgos [facility] Primary Care Provider Reason for Visit Reason Comments Well Woman Exam CONTROL Encounter Details Date Type Department Care Team Description 07/22/2020 Office Visit [facility]- Emma Burgos for other contraceptive management (Primary Dx); Timmy Mayorga KATARINA Encounter for Depo-Provera contraception ; [address] Depot contraception; [address] Well woman exam; [place], [place] [address] Over weight [id number] Allergies Active Allergy Reactions Severity Noted Date Comments Grass Pollen Cough 07/22/2020 [place] Cough 07/22/2020 documented as of this encounter (statuses as of 07/22/2020) Medications Medication Sig Dispensed Refills Start Date End Date Status ferrous sulfate 325 mg Take 1 tablet by 60 tablet 2 04/21/2017 Active (65 mg iron) tablet mouth 2 (two) times daily. Hospital, Clinic, or Other Ordered Dose Route Frequency Start Date End Date Status Facility Administered Medication medroxyPROGESTERone 150 mg IM [id number] 05/22/2018 Active (DEPO-PROVERA) injection 150 mgIndications: Encounter for initial prescription of injectable contraceptive medroxyPROGESTERone 150 mg IM [id number] 07/22/2020 2 Active (DEPO-PROVERA) injection 150 mgIndications: Depot contraception documented as of this encounter (statuses as of 07/22/2020) Active Problems Patient Care Coordination Note IOL 11-2-17 @7pm Problem Noted Date Over weight 07/22/2020 Depot contraception 05/29/2019 Nexplanon removal 08/29/2017 Well [...] Assigned at Date Recorded Not on file COVID-19 Exposure Response Date Recorded In the last month, have you been in contact with No / Unsure 07/22/2020 9:38 AM AUTOMATIC PATTERN EDGER someone who was confirmed or suspected to have Coronavirus / COVID-19? documented as of this encounter Last Filed Vital Signs Vital Sign Reading Time Taken Comments Blood Pressure 121/72 07/22/2020 9:38 AM AUTOMATIC PATTERN EDGER Pulse 93 07/22/2020 9:38 AM AUTOMATIC PATTERN EDGER Temperature 37.2 C (98.9 F) 07/22/2020 9:38 AM AUTOMATIC PATTERN EDGER Respiratory Rate 16 07/22/2020 9:38 AM AUTOMATIC PATTERN EDGER Oxygen Saturation - - Inhaled Oxygen Concentration - - Weight 83.2 kg (183 lb 8 oz) 07/22/2020 9:38 AM AUTOMATIC PATTERN EDGER Height 170.2 cm (5' 7") 07/22/2020 9:38 AM AUTOMATIC PATTERN EDGER Body Mass Index 28.74 07/22/2020 9:38 AM AUTOMATIC PATTERN EDGER documented in this encounter Progress Notes Emma Burgos, ANNA MARIEP - 07/22/2020 10:30 AM CST Chief complaint: Chief Complaint Patient presents with Well Woman Exam CONTROL COUNTER SERVER Exam Patient is here for contraceptive management and well woman visit. She is not . She wears cotton underwear. It is unknown whether or not her partner has an STD. She uses progestin injections for contraception. Patient reports that prior to today's visit, her form of control was 3 month hormonal injection. After this visit, patient's form of control will be 3 month hormonal injection. Her menstrual history has been regular. Patient reports sexually active. HPI: ; the patient is here today for WWE and contraceptive management. She reports she is doing welltoday with no issues or concerns. She agrees to STi testing but declines the need for HIV testing today.she reports she was on depo for control and desires to re-start depo today. She reports herlast intercourse was 07/02/20 Histories OB History Para Term AB Living 1 1 1 0 0 1 SAB TAB Ectopic Multiple Live Births 0 0 0 0 1 # Outcome Date GA Lbr Clifford/2nd Weight Sex Delivery Anes PTL Lv 1 Term 04/20/17 [id number] 7 lb 0.2 oz (3.18 kg) F VAGINAL EPI SO Past Medical History: Diagnosis Date Abnormal uterine bleeding Anemia of mother in , antepartum 01/15/2017 Asthma dx in 5th grade, resolved Menstrual disorder Thrombocytopenia 04/22/2017 Family History Problem Relation Age of Onset Arthritis Maternal Grandmother Diabetes Maternal Grandmother Hypertension Maternal Grandmother Asthma NoFHx defects NoFHx Breast Cancer NoFHx Colon Cancer NoFHx Ovarian Cancer NoFHx Uterine Cancer NoFHx Cancer NoFHx Depression NoFHx Genetic NoFHx Heart NoFHx High cholesterol NoFHx Mental retardation NoFHx Neurological NoFHx Osteoporosis NoFHx Psychiatry NoFHx Family Status Relation Name Status MGMo (Not Specified) NoFHx (Not Specified) History reviewed. No pertinent surgical history. Social History Socioeconomic History Marital status: Single Spouse name: Not on file Number of children: 1 Years of education: Not on file Highest education level: Not on file Occupational History Not on file Social Needs Financial resource strain: Not on file Food insecurity Worry: Not on file Inability: Not on file Transportation needs Medical: Not on file Non-medical: Not on file Tobacco Use Smoking status: Never Smoker Smokeless tobacco: Never Used Substance and Sexual Activity Alcohol use: No Alcohol/week: 0.0 standard drinks Drug use: No Sexual activity: Yes Partners: Male control/protection: None Comment: last intercourse: 07/02/2020 Lifestyle Physical activity Days per week: Not on file Minutes per session: Not on file Stress: Not on file Relationships Social connections Talks on phone: Not on file Gets together: Not on file Attends anabaptism service: Not on file Active member of club or organization: Not on file Attends meetings of clubs or organizations: Not on file Relationship status: Not on file Intimate partner violence Fear of current or ex partner: Not on file Emotionally abused: Not on file Physically abused: Not on file Forced sexual activity: Not on file Other Topics Concern Not on file Social History Narrative Pt denies current or past physical, sexual or emotional abuse. Social History Substance and Sexual Activity Sexual Activity Yes Partners: Male control/protection: None Comment: last intercourse: 07/02/2020 Labs Labs are pending. and No visits with results within 1 Month(s) from this visit. Latest known visit with results is: Office Visit on 05/29/2019 Component Date Value C. trachomatis Nucleic A* 05/29/2019 Negative N. gonorrhoeae Nucleic A* 05/29/2019 Negative Radiology No new radiology. Allergies Tereza is allergic to grass pollen and oak. Medications Tereza has a current medication list which includes the following prescription(s): ferrous sulfate,and the following Facility-Administered Medications: medroxyprogesterone and medroxyprogesterone. Review of Systems Constitutional: Negative. HENT: Negative. Eyes: Negative. Respiratory: Negative. Breasts: Negative. Cardiovascular: Negative. Gastrointestinal: Negative. Genitourinary: Negative. Musculoskeletal: Negative. Skin: Negative. Neurological: Negative. Psychiatric/Behavioral: Negative. Endocrine: Endocrine negative BP 121/72 (BP Location: Right arm, Patient Position: Sitting, BP CUFF SIZE: Adult Medium) | Pulse 93 | Temp 37.2 C (98.9 F) (Oral) | Resp 16 | Ht 5' 7" (1.702 m) | Wt 183 lb 8 oz (83.2 kg) | BMI 28.74 kg/m Pregravid BMI: Could not be calculated Physical Exam Vitals reviewed. Constitutional: She is oriented to person, place, and time. She appears well- developed and well-nourished. Her body habitus is normal. Cardiovascular: Regular rate and rhythm. No peripheral edema present. Pulmonary/Chest: Normal inspiratory effort. Neuro/Psychiatric: She has a normal mood and affect. She is oriented to person, place, and time. Skin: Skin normal. No lesion, no rash and no ulceration present. Assessment/Plan Return to clinic in 12 weeks. for depo Return to clinic in 1 year for WWE or sooner as needed Rubella/VZV: immune BMI: 28 Td: 2017 Pap Smear: 2018 Gardasil: completed Mammogram/Guaiac/Colonoscopy:na Encounter for other contraceptive management (primary encounter diagnosis) Encounter for Depo-Provera contraception Comment: as ordered Plan: POCT TEST Depot contraception Comment: as ordered Plan: medroxyPROGESTERone (DEPO-PROVERA) injection 150 mg Well woman exam Comment: routine Plan: GC & CHLAMYDIA AMPLIFIED ASSAY Over weight Comment: see bmi Plan: BMI discussed, appropriate weight gain, sensible diet, and exercise, increased fiber and waterintake and protein low in fat. Encouraged exercise for 30 min everyday; begin regimen with caution to prevent injury. Encouraged to decrease BMI to <25. Educated on how obesity and smoking can affect future and health. 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 This visit did not involve counseling and coordination that comprised more than 50% of the visit time. INDER Fowler 07/22/2020 10:54 AM MATIC PATTERN EDGER Heidi Brown RN - 07/22/2020 10:30 AM AUTOMATIC PATTERN EDGER 24 year old female has been identified by and name. Verbal consent has been obtained by patient to have an injection of Depo Provera, as ordered by the provider. Date of last Depo Provera injection: restart today, Last intercourse: 07/02/2020. UPT negative Last WWE: 07/22/2020 Encounter Diagnosis: v25.49 The site was cleaned with an alcohol swab and given intramuscularly (IM) in the left gluteus. A band aid dressing was then applied to the injection site. The patient tolerated the procedure well , norash, swelling or reaction noted. Advised patient on Calcium intake 500-1200 mg daily. ED warnings given. Patient to return to clinic in 12 weeks for next Depo. Patient verbalized understanding. MATIC PATTERN EDGER Heidi Brown RN - 07/22/2020 10:30 AM CST24 year old presents to the clinic for wwe. 1) Previous BCM: none 2) Desired BCM: Restart depo 3) LMP: 10/2019 4) Last [place]: 07/02/2020 5) Last Pap: 05/28/2018/ Results: Negative 6) Tdap: 2017 7) Gardasil: Completed 8) C/O: declines 9) Patient denies history of physical, emotional, or sexual abuse. Patient states that she currently feels safe at home. HEIDI BROWN RN 07/22/2020 9:52 AM MATIC PATTERN EDGER documented in this encounter Plan of Treatment Date Type Specialty Care Team Description 10/14/2020 Nurse Visit [facility] Name Type Priority Associated Diagnoses Date/Ti me GC & CHLAMYDIA AMPLIFIED LAB Routine Well woman exam 07/22/2020 10:18 AM AUTOMATIC PATTERN EDGER ASSAY Health Maintenance Due Date Last Done Comments Depression Screening 11/04/2020 11/05/2019 INFLUENZA VACCINE (#1) 2020 05/14/2019, 08/21/2018, P ostponed from 04/22/2017, Additional 0 (Refused) history exists PAP SMEAR 05/28/2021 05/28/2018 CHLAMYDIA SCREENING 07/22/2021 07/22/2020, 05/29/2019, 05/29/2019, Additional history exists MENINGOCOCCAL B VACCINES (1 07/22/2021 Post poned from of 2 - Risk Bexsero 2-dose 09/17 (Alternative series) Guidelines) DTaP,Tdap,and Td Vaccines 01/26/2027 01/26/2017 (2 - Td) HPV VACCINES Completed 11/21/2017, 06/26/2017, 04/21/2017 PNEUMOCOCCAL 0-64 YEARS Aged Out No longe r eligible COMBINED SERIES based on patient 's age to complete this topic documented as of this encounter Procedures Procedure Name Priority Date/Time Associated Diagnosis Comme nts POCT Routine 07/22/2020 9:57 Encounter for Results for this TEST AM AUTOMATIC PATTERN EDGER Depo-Provera procedure are i n contraception the results section. documented in this encounter Results POCT TEST (07/22/2020 9:57 AM AUTOMATIC PATTERN EDGER) Pathologist Sig nature POCT PREG Negative On board controls acceptable Yes with C Line POCT PREG LOT # POCT PREG TEST DATE Specimen Urine - URINE, CLEAN CATCH documented in this encounter Visit Diagnoses Diagnosis Encounter for other contraceptive manage ment - Primary Encounter for Depo-Provera contraception Surveillance of other previously prescri bed contraceptive method Depot contraception Well woman exam Routine general medical examination at a health care facility Over weight Overweight documented in this encounter Administered Medications Medication Order MAR Action Action Date Dose Rate Site medroxyPROGESTERone Given 07/22/2020 10:30 150 mg Left (DEPO-PROVERA) injection 150 AM AUTOMATIC PATTERN EDGER Dorsogluteal-IM mg 150 mg, Intramuscular, [id number], 4 doses, First dose on [place] 07/22/20 at 1030, Last dose on [place] 03/31/21 at 1030, Routine documented in this encounter Insurance Payer Benefit Plan Subscriber ID Effective Phone Address Typ e / Group Dates [facility] [id number] 2018-Prese [phone] Medicaid WOMEN nt [address] [place] [address] documented as of this encounter Advance Directives Name Relationship Healthcare Agent Relationship Co mmunication Meghan Wisdom Other Health Care Agent [phone] ( Home)
--- OUTSIDE RECORDS SUMMARY | 2020-07-28 12:13 | XMS REPORT | Summary of Care ---
:1995 Author Organization [facility] Address [address] [place] [address] Care Team Providers Name Role Phone Tierra Burgos [facility] Primary Care Provider Reason for Visit Reason Comments Well Woman Exam CONTROL Encounter Details Date Type Department Care Team Description 07/22/2020 Office Visit [facility]- Emma Burgos for other contraceptive management (Primary Dx); Timmy Mayorga KATARINA Encounter for Depo-Provera contraception ; [address] Depot contraception; [address] Well woman exam; [place], [place] [address] Over weight [phone] Allergies Active Allergy Reactions Severity Noted Date Comments Grass Pollen Cough 07/22/2020 [place] Cough 07/22/2020 documented as of this encounter (statuses as of 07/22/2020) Medications Medication Sig Dispensed Refills Start Date End Date Status ferrous sulfate 325 mg Take 1 tablet by 60 tablet 2 04/21/2017 Active (65 mg iron) tablet mouth 2 (two) times daily. Hospital, Clinic, or Other Ordered Dose Route Frequency Start Date End Date Status Facility Administered Medication medroxyPROGESTERone 150 mg IM [id number] 05/22/2018 Active (DEPO-PROVERA) injection 150 mgIndications: Encounter for initial prescription of injectable contraceptive medroxyPROGESTERone 150 mg IM [id number] 07/22/2020 2 Active (DEPO-PROVERA) injection 150 mgIndications: [...] with No / Unsure 07/22/2020 9:38 AM ENTRY DRIVER OPERATOR someone who was confirmed or suspected to have Coronavirus / COVID-19? documented as of this encounter Last Filed Vital Signs Vital Sign Reading Time Taken Comments Blood Pressure 121/72 07/22/2020 9:38 AM ENTRY DRIVER OPERATOR Pulse 93 07/22/2020 9:38 AM ENTRY DRIVER OPERATOR Temperature 37.2 C (98.9 F) 07/22/2020 9:38 AM ENTRY DRIVER OPERATOR Respiratory Rate 16 07/22/2020 9:38 AM ENTRY DRIVER OPERATOR Oxygen Saturation - - Inhaled Oxygen Concentration - - Weight 83.2 kg (183 lb 8 oz) 07/22/2020 9:38 AM ENTRY DRIVER OPERATOR Height 170.2 cm (5' 7") 07/22/2020 9:38 AM ENTRY DRIVER OPERATOR Body Mass Index 28.74 07/22/2020 9:38 AM ENTRY DRIVER OPERATOR documented in this encounter Progress Notes Emma Burgos, ANNA MARIEP - 07/22/2020 10:30 AM CST Chief complaint: Chief Complaint Patient presents with Well Woman Exam CONTROL TELEVISION MAINTENANCE MAN Exam Patient is here for contraceptive management [...] file Gets together: Not on file Attends nondenominational service: Not on file Active member of [...] and mental health on future pregnancies and/or 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 This visit did not involve counseling and coordination that comprised more than 50% of the visit time. INDER Fowler 07/22/2020 10:54 AM Y DRIVER OPERATOR Heidi Brown RN - 07/22/2020 10:30 AM ENTRY DRIVER OPERATOR 24 year old female has been identified [...] weeks for next Depo. Patient verbalized understanding. Y DRIVER OPERATOR Heidi Brown RN - 07/22/2020 10:30 AM CST24 year old presents to the clinic for wwe. 1) Previous BCM: none 2) Desired BCM: Restart depo 3) LMP: 10/2019 4) Last [place]: 07/02/2020 5) Last Pap: 05/28/2018/ Results: Negative 6) Tdap: 2017 7) Gardasil: Completed 8) C/O: declines 9) Patient denies history of physical, emotional, or sexual abuse. Patient states that she currently feels safe at home. HEIDI BROWN RN 07/22/2020 9:52 AM Y DRIVER OPERATOR documented in this encounter Plan of Treatment Date Type Specialty Care Team Description 10/14/2020 [facility] Name Type Priority Associated Diagnoses Date/Ti me GC & CHLAMYDIA AMPLIFIED LAB Routine Well woman exam 07/22/2020 10:18 AM ENTRY DRIVER OPERATOR ASSAY Health Maintenance Due Date Last Done [...] Encounter for Results for this TEST AM ENTRY DRIVER OPERATOR Depo-Provera procedure are i n contraception the results section. documented in this encounter Results POCT TEST (07/22/2020 9:57 AM ENTRY DRIVER OPERATOR) Pathologist Sig nature POCT PREG Negative On [...] 150 mg Left (DEPO-PROVERA) injection 150 AM ENTRY DRIVER OPERATOR Dorsogluteal-IM mg 150 mg, Intramuscular, [id number], 4 doses, First dose on [place] 07/22/20 at 1030, Last dose on [place] 03/31/21 at 1030, Routine documented in this encounter Insurance Payer Benefit Plan Subscriber ID Effective Phone Address Typ e / Group Dates [facility] [id number] 2018-Prese [phone] Medicaid WOMEN nt [address] [place] [address] documented as of this encounter Advance Directives Name Relationship Healthcare Agent Relationship Co mmunication Meghan Wisdom Other Health Care Agent [phone] ( Home)
== END 2020-07-27 21:17 | disposition home or self-care (01) ==
LOC: ER 16:12
DX: Z11.3 Encounter for screening for infections with a predominantly sexual mode of transmission (principal)
CPT/HCPCS: 81003; 81025; 99281